=== PATIENT | female | born 1935 | race Caucasian/White ===

== ENCOUNTER 2020-09-30 08:11 | Emergency (ER) | payer MEDICARE, OTHER ==
[~2020-09-30] VITALS: Ht 160 cm; Wt 81.6 kg
[2020-09-30 08:28] VITALS: BP_SYST 150
[2020-09-30] MEDS ORDERED: NS 500 ML IV ONE (08:45)
[2020-09-30 09:13] LABS: BASOPHILS % (AUTO) 0.4 % (0.0-2.0); EOSINOPHILS # (AUTO) 0.2 K/uL (0.0-0.4); EOSINOPHILS % (AUTO) 1.5 % (0.0-4.0); HEMATOCRIT 41.2 % (36-48); HEMOGLOBIN 13.3 g/dL (12.0-16.0); LYMPHOCYTES # (AUTO) 5.6 K/uL (1.0-5.5); LYMPHOCYTES % (AUTO) 50.1 % (20.5-51.5); MEAN CORPUSCULAR HEMOGLOBIN 28 pg (27-31); MEAN CORPUSCULAR HGB CONC 32 % (32-36); MEAN CORPUSCULAR VOLUME 88 fL (79.0-98.0); MONOCYTES # (AUTO) 0.5 K/uL (0.0-1.0); MONOCYTES % (AUTO) 4.3 % (1.7-9.3); NEUTROPHILS # (AUTO) 4.9 K/uL (1.8-7.7); NEUTROPHILS % (AUTO) 43.7 % (40.0-70.0); PLATELET COUNT (AUTO) 252 K/uL (130-430); RED BLOOD CELL COUNT(AUTO) 4.67 MIL/uL (4.2-6.2); RED CELL DISTRIBUTION WIDTH 15.2 % (9.0-15.0); WHITE BLOOD COUNT (AUTO) 11.3 K/uL (4.8-10.8)
[2020-09-30 09:23] LABS: ANION GAP 7 (5-15); CALCIUM 8.9 mg/dL (8.4-11.0); CHLORIDE 104 mmol/L (98-107); CREATININE 1.04 mg/dL (0.55-1.30); GLUCOSE 117 mg/dL (70-99); POTASSIUM 4.3 mmol/L (3.5-5.1); SODIUM SERUM 143 mmol/L (136-145); UREA NITROGEN, BLOOD 15 mg/dL (8-21)
[2020-09-30 09:42] LABS: ALANINE AMINOTRANSFERASE 32 U/L (12-78); ALBUMIN 3.3 g/dL (3.4-4.8); ASPARTATE AMINOTRANSFERASE 27 U/L (10-37); TOTAL BILIRUBIN 0.4 mg/dL (0.0-1.0)
[2020-09-30 09:46] LABS: ACETAMINOPHEN < 1 ug/mL (1-30); ALCOHOL, BLOOD < 3 mg/dL (<10)
[2020-09-30] MEDS ORDERED: KETOROLAC TROMETHAMINE 30 MG VIAL IVP ONE (10:00)
== END 2020-09-30 10:15 | disposition short-term general hospital (02) ==
LOC: SED 08:11
DX: F29 Unspecified psychosis not due to a substance or known physiological condition (principal)
CPT/HCPCS: 36415; 80053; 85025; 99285; G0480; G0481; G0482

== ENCOUNTER 2022-09-10 10:07 | Inpatient (IN) | payer MEDICARE, OTHER ==
[~2022-09-10] VITALS: Ht 165.1 cm; Wt 79.4 kg
[2022-09-10 10:19] VITALS: BP_SYST 146
--- NOTE | 2022-09-10 10:20 | NUR ---
SON, LU, CALLED FOR STATUS. LEFT CALL BACK NUMBER [phone]
--- NOTE | 2022-09-10 10:25 | NUR ---
PATIENT BIBA FOR C/P PLACE IN BED 7 ON HOSPICE RN, AWAITING FOR EDP FOR INITIAL ASSESSMENT.
--- NOTE | 2022-09-10 10:26 | NUR ---
Patient to ER bed 7 to gown for evaluation. Side rails up. Report given to DOC MORFIN.
--- NOTE | 2022-09-10 10:27 | NUR ---
ER at bedside examining patient.
--- NOTE | 2022-09-10 10:43 | NUR ---
EDP SEEN PATIENT WITH ORDER [place] OUT.
[2022-09-10] MEDS ORDERED: ASPIRIN 81 MG TAB.CHEW PO ONE (10:45)
--- NOTE | 2022-09-10 11:17 | NUR ---
BELINDA SON OF PATIENT [id number]
[2022-09-10 11:23] LABS: HEMATOCRIT 45.2 % (36-48); HEMOGLOBIN 14.7 g/dL (12.0-16.0); MEAN CORPUSCULAR HEMOGLOBIN 29 pg (27-31); MEAN CORPUSCULAR HGB CONC 33 % (32-36); MEAN CORPUSCULAR VOLUME 89 fL (79.0-98.0); PLATELET COUNT (AUTO) 363 K/uL (130-430); RED BLOOD CELL COUNT(AUTO) 5.11 MIL/uL (4.2-6.2); RED CELL DISTRIBUTION WIDTH 14.3 % (9.0-15.0)
[2022-09-10 11:35] LABS: ANION GAP 12 (5-15); CALCIUM 10.2 mg/dL (8.4-11.0); CHLORIDE 98 mmol/L (98-107); CREATININE 2.15 mg/dL (0.55-1.30); GLUCOSE 124 mg/dL (70-99); UREA NITROGEN, BLOOD 90 mg/dL (8-21); WHITE BLOOD COUNT (AUTO) 22.3 K/uL (4.8-10.8)
[2022-09-10 11:43] LABS: ALANINE AMINOTRANSFERASE 43 U/L (12-78); ALBUMIN 3.9 g/dL (3.4-4.8); ASPARTATE AMINOTRANSFERASE 27 U/L (10-37); TOTAL BILIRUBIN 0.6 mg/dL (0.0-1.0)
[2022-09-10 12:36] LABS: BAND % (MANUAL) 0 % (0-6)
[2022-09-10 12:38] LABS: ATYPICAL LYMPHOCYTES % 7 % (0-0); BASOPHILS % (MANUAL) 0 % (0-2); EOSINOPHILS % (MANUAL) 1 % (0-7); MONOCYTES % (MANUAL) 3 % (0-11)
[2022-09-10 12:40] LABS: LYMPHOCYTES % (MANUAL) 55 % (20-46)
--- NOTE | 2022-09-10 13:51 | NUR ---
CALL PLACE TO [facility] FOR DISPOSITION.
--- NOTE | 2022-09-10 16:20 | NUR ---
covid swab obtained and sent to lab
[2022-09-10] MEDS ORDERED: cefTRIAXone 1 GM in D5W 50 ML IV ONE ×2 (18:45→19:00)
--- NOTE | 2022-09-10 18:57 | NUR ---
PATIENT STRAIGHT CATH TO COLLECT URINE.
[2022-09-10] MEDS ORDERED: cefTRIAXone 1 GM VIAL ONE (19:12)
[2022-09-10] MEDS: cefTRIAXone 1 GM in D5W 50 ML IV SCH (21:00)
--- NOTE | 2022-09-10 21:15 | NUR ---
PT VERBALIZE NEED TO HELP HER REPOSITION EVERY 2 HRS
[2022-09-10] MEDS ORDERED: PRO40 PO (21:44)
[2022-09-10] MEDS ORDERED: EZET10TA30 PO (21:44)
[2022-09-10] MEDS ORDERED: XALEYE OP (21:44)
[2022-09-10] MEDS ORDERED: CLON0.5T4 PO (21:44)
[2022-09-10] MEDS ORDERED: FURO-150 PO (21:44)
[2022-09-10] MEDS ORDERED: OMEG100037 PO (21:44)
[2022-09-10] MEDS ORDERED: METF-518 PO (21:44)
[2022-09-10] MEDS ORDERED: ASPI-1155 PO (21:44)
[2022-09-10] MEDS ORDERED: HYDR-3917 PO (21:44)
[2022-09-10] MEDS ORDERED: BRI.2% EACH EYE (21:44)
[2022-09-10] MEDS ORDERED: DOCU-144 PO (21:44)
[2022-09-10] MEDS ORDERED: MELA10TA PO (21:44)
[2022-09-10] MEDS ORDERED: POTA-197 PO (21:44)
[2022-09-10] MEDS ORDERED: SENN8.6T19 PO (21:44)
[2022-09-10] MEDS ORDERED: COLE1TAB2 PO (21:44)
[2022-09-10] MEDS ORDERED: BISA10SU61 RC (21:44)
[2022-09-10] MEDS ORDERED: HYDR-4038 PO (21:44)
[2022-09-10] MEDS ORDERED: MOM PO (21:44)
[2022-09-10] MEDS ORDERED: FLUT16SP16 NS (21:44)
[2022-09-10] MEDS ORDERED: SER25 PO (21:44)
[2022-09-10] MEDS ORDERED: FERROUS SULFATE PO (21:44)
[2022-09-10] MEDS ORDERED: NEU100 PO (21:44)
[2022-09-10] MEDS ORDERED: LACT10SO6 PO (21:44)
[2022-09-10] MEDS ORDERED: TRAM50TA2 PO (21:44)
[2022-09-10] MEDS ORDERED: L.RH1CAP PO (21:44)
[2022-09-11] MEDS: QUEtiapine FUMARATE 25 MG TABLET PO SCH
[2022-09-11 02:18] LABS: BILIRUBIN,URINE NEGATIVE (NEGATIVE); BLOOD, URINE NEGATIVE (NEGATIVE); CLARITY/URINE CLEAR (CLEAR); COLOR,URINE YELLOW (YELLOW); GLUCOSE,URINE NEGATIVE (NEGATIVE); KETONES,URINE NEGATIVE (NEGATIVE); LEUKOCYTE ESTERASE ,URINE 3+ (NEGATIVE); NITRITE, URINE POSITIVE (NEGATIVE); PH,URINE 8.5 (5.0-8.0); PROTEIN URINE TRACE (NEGATIVE); UROBILINOGEN,URINE 0.2 (0.2-1.0)
[2022-09-11] MEDS ORDERED: INSU100V7 SUBCUT (02:33)
[2022-09-11 02:35] LABS: RBC,URINE 0-3 /HPF (0-3)
[2022-09-11 02:36] LABS: MUCUS,URINE None Seen /LPF (None Seen); WBC,URINE 20-50 /HPF (0-3)
--- NOTE | 2022-09-11 03:00 | NUR ---
COMPLETED TOTAL BEDSIDE CARE WITH HOSPITAL BED CHANGE WELL TOLERATED
[2022-09-11] MEDS ORDERED: METF-379 PO (06:40)
[2022-09-11] MEDS ORDERED: INSULIN LISPRO SLIDING SCALE 100 UNITS/ML, 3 ML VIAL (humaLOG) SUBCUT PRN (07:30)
--- NOTE | 2022-09-11 08:00 | NUR ---
PT WITH BM, CLEANSED AND REPOSITIONED, LINEN CHANGED. REDNESS AND POOR SKIN INTEGRITY TO SACRAL REGION AFFIXED IODIFORM TO SCARAL REGION.
--- NOTE | 2022-09-11 08:04 | NUR ---
Admit bed requested Patient will be admitted to care of . Admitted to TELE unit. Diagnosis LEUKOCYTOSIS AND CHEST PAIN Inpatient (Yes or No) Y Observation (Yes or No) N Orientation concerns or request close to nursing station (Yes or No) N Covid Status NEGATIVE On vent or bipap Isolation requirements N Needs a sitter N From Home (Yes or if No enter name of facility) [facility] Requires Dialysis (Yes or No) N Med Rec Completed (Yes of No) Y
--- NOTE | 2022-09-11 08:26 | NUR ---
BREAKFAST OFFERED PT REFUSES FOOD AT THIS TIME REQUESTS LIGHTS OFF. PT IS AAOX3, DENIES SOB, DENIES CHEST PAIN. PT IS DROWSY AND LYING ON LEFT SIDE.
[2022-09-11] MEDS: FLUTICASONE PROPIONATE 50 mCg/SPRAY 16 GM NS SCH (09:00)
[2022-09-11] MEDS ORDERED: NACL 0.9% 1,000 ML IV ONE (09:30)
--- NOTE | 2022-09-11 10:00 | NUR ---
pt repositioned in bed, accucheck monitored sliding scale referred to.
[2022-09-11 11:07] LABS: BACTERIA,URINE MODERATE /HPF (None Seen)
[2022-09-11] MEDS: GABAPENTIN 100 MG CAPSULE PO SCH ×3 (11:57→21:00)
[2022-09-11] MEDS: DOCUSATE SODIUM 100 MG CAPSULE PO SCH ×2 (11:57→21:00)
[2022-09-11] MEDS: ASPIRIN 81 MG TAB.CHEW PO SCH (11:57)
[2022-09-11] MEDS: EZETIMIBE 10 MG TABLET PO SCH (11:58)
[2022-09-11] MEDS: PANTOPRAZOLE SODIUM 40 MG TAB PO SCH (11:58)
[2022-09-11] MEDS: NACL 0.9% 1,000 ML IV SCH ×3 (11:59→22:50)
[2022-09-11 12:37] LABS: ALANINE AMINOTRANSFERASE 53 U/L (12-78); ALBUMIN 3.9 g/dL (3.4-4.8); ANION GAP 16 (5-15); ASPARTATE AMINOTRANSFERASE 38 U/L (10-37); CALCIUM 9.9 mg/dL (8.4-11.0); CHLORIDE 98 mmol/L (98-107); CREATININE 1.96 mg/dL (0.55-1.30); GLUCOSE 129 mg/dL (70-99); TOTAL BILIRUBIN 0.4 mg/dL (0.0-1.0); UREA NITROGEN, BLOOD 89 mg/dL (8-21)
--- NOTE | 2022-09-11 13:46 | NUR ---
ACCUCHECK BLOOD SUGAR 124 NO INSULIN PER SLIDING SCALE
--- NOTE | 2022-09-11 14:11 | NUR ---
PT FAMILY BEDSIDE UPDATED ON STATUS OF ADMISSION PROCESS. OPPURTUNITY FOR QUESTIONS ANSWERED.
--- NOTE | 2022-09-11 14:41 | NUR ---
PT REPOSITIONED TO RIGHT SIDE LYING POSITION, PT ENCOURAGED TO SHIFT WEIGHT FOR BEST SKIN INTEGRITY.
--- NOTE | 2022-09-11 15:54 | NUR ---
ACCUCHECK 114 BLOOD SUGAR PT WITHIN PARAMETERS PER SLIDING SCALE.
--- NOTE | 2022-09-11 18:05 | NUR ---
Pt repositioned to lateral left side, pt diaper/brief cleansed and changed. Pt is warm and dry bed down rails up, denies complaints, pt vss , bolus ivf running free.
[2022-09-11] MEDS ORDERED: traMADol HCL HCL 50 MG TABLET (ULTRAM) ONE (18:30)
[2022-09-11] MEDS: traMADol HCL HCL 50 MG TABLET (ULTRAM) PO PRN (18:35)
--- NOTE | 2022-09-11 18:36 | NUR ---
Pt medicated for generalized pain per request. Ultram given pt tolerated well.
--- NOTE | 2022-09-11 18:57 | NUR ---
Pt offered soft mechanical low sodium diet . Pt refuses food at this time.
--- NOTE | 2022-09-11 19:30 | NUR ---
REPORT FROM JEREMIAH MORFIN
--- NOTE | 2022-09-11 20:00 | NUR ---
Patient resting quietly. No acute distress noted. Vital signs within normal range. REFUSING PUREWICK. REFUSING TO GIVE URINE SPECIMEN.
--- NOTE | 2022-09-11 20:00 | NUR ---
PT BG 134
--- NOTE | 2022-09-11 20:43 | NUR ---
PT AWARE OF PLAN FOR TRANSFER. BED NOT READY AT THIS TIME.
[2022-09-11] MEDS: BRIMONIDINE TARTRATE 0.2% 5 mL EYE DROPS EACH EYE SCH (21:00)
[2022-09-11] MEDS: LATANOPROST 2.5 ML DROPS (XALATAN) OP SCH (21:00)
[2022-09-12] VITALS (7 sets, daily range): BP systolic 119–149
--- NOTE | 2022-09-12 | NUR ---
Patient will be admitted to [facility]. Admitted to tele unit. Will go to room 105A. Belongings list completed. Complete and up to date summary report printed. SBAR report to be given at bedside with opportunity for questions. Report to Sravani MORFIN.
--- NOTE | 2022-09-12 03:03 | NUR ---
Received report and assumed care of this patient she is stable with normal vital signs, she denies any pain at this time. She was supposed to have NS running at 100 but the Peripheral I.V infiltrated and was taken out, patient refused it to be replaced verbalizing that she does not want any IV line to be inserted. Benefits of having an IV while admitted were explained to the patient with no success. To endorse to AM shift RN for continuity of care and also talk to her about having an IV inserted. Will continue to monitor her.
[2022-09-12] MEDS: NACL 0.9% 1,000 ML IV SCH ×3 (05:30→17:00)
--- NOTE | 2022-09-12 08:08 | NUR ---
refused- Pt refused blood draw and the heart monitor. Pt keeps taking the monitor out.
[2022-09-12] MEDS: FLUTICASONE PROPIONATE 50 mCg/SPRAY 16 GM NS SCH ×2 (09:00→21:00)
--- NOTE | 2022-09-12 09:00 | NUR ---
MD ROUNDS Seen by Dr. Mclean, Made aware that patient refused to wear monitor and keeps taking it out, also refused labs and no IV refused to start a new one.
[2022-09-12] MEDS: GABAPENTIN 100 MG CAPSULE PO SCH ×3 (09:34→22:16)
[2022-09-12] MEDS: DOCUSATE SODIUM 100 MG CAPSULE PO SCH ×2 (09:35→22:18)
[2022-09-12] MEDS: ASPIRIN 81 MG TAB.CHEW PO SCH (09:35)
[2022-09-12] MEDS: PANTOPRAZOLE SODIUM 40 MG TAB PO SCH (09:35)
[2022-09-12] MEDS: EZETIMIBE 10 MG TABLET PO SCH (09:35)
--- NOTE | 2022-09-12 10:38 | NUR ---
Diet- Pt stated she does not have a teeth and cannot chew food, change diet to pureed.
--- NOTE | 2022-09-12 12:21 | NUR ---
Notes- Endorse care to SHELBIE Greene. pt in bed, No distress.
--- NOTE | 2022-09-12 12:29 | NUR ---
Report received from day shift RN for continuity of care. Patient stable.
[2022-09-12] MEDS ORDERED: POTASSIUM CHLORIDE 20 MEQ TAB.PRT.SR PO ONE (15:00)
--- NOTE | 2022-09-12 16:36 | NUR ---
[facility] notified of patient's stability to transfer. [facility] will call if a bed is available. Patient's son notified of possible transfer to [facility] and he agreed to transfer.
--- NOTE | 2022-09-12 17:30 | NUR ---
Dietitian Recommendations * Continue liberalized puree diet until PO intake improves * Ordered: Glucerna BID (ONS provides 440kcals, 20g PRO) * Consider MVI for inadequate PO intake Please refer to nutrition assessment for details, thanks! CC, MPH, SAMY Addendum: 09/12/22 at [address] Glucerna BID not ordered: Puree diet includes Ensure Enlive TID (ONS provides 1050kcals, 60g PRO)
--- NOTE | 2022-09-12 18:46 | NUR ---
Patient report given to oncoming RN. Will continue to monitor.
[2022-09-12] MEDS ORDERED: clonazePAM 0.5 MG TABLET PO SCH (21:00)
[2022-09-12] MEDS: LATANOPROST 2.5 ML DROPS (XALATAN) OP SCH (21:00)
[2022-09-12] MEDS: BRIMONIDINE TARTRATE 0.2% 5 mL EYE DROPS EACH EYE SCH (21:00)
[2022-09-12] MEDS: hydrALAZINE HCL 25 MG TABLET PO SCH (22:17)
[2022-09-12] MEDS: traMADol HCL HCL 50 MG TABLET (ULTRAM) PO PRN (22:18)
[2022-09-12] MEDS: QUEtiapine FUMARATE 25 MG TABLET PO SCH (22:18)
[2022-09-12] MEDS: metFORMIN HCL 500 MG TABLET PO SCH (22:19)
[2022-09-12] MEDS ORDERED: cefTRIAXone 1 GM IVPB PREMIX 50 ML IV ONE (22:33)
[2022-09-12] MEDS: cefTRIAXone 1 GM in D5W 50 ML IV SCH (22:45)
[2022-09-13 00:20] VITALS: BP_SYST 126
[2022-09-13] MEDS: traMADol HCL HCL 50 MG TABLET (ULTRAM) PO PRN (00:24)
[2022-09-13 04:00] VITALS: BP_SYST 120
--- NOTE | 2022-09-13 05:54 | NUR ---
Patient did not have any complaints this shift, she received all her scheduled medications, she verbalized she wants to go home as she feels better . To endorse to AM shift for continuity of care.
[2022-09-13 08:53] LABS: BASOPHILS # (AUTO) 0.1 K/uL (0.0-0.2); BASOPHILS % (AUTO) 0.4 % (0.0-2.0); EOSINOPHILS # (AUTO) 0.3 K/uL (0.0-0.4); EOSINOPHILS % (AUTO) 1.9 % (0.0-4.0); HEMATOCRIT 44.7 % (36-48); HEMOGLOBIN 14.5 g/dL (12.0-16.0); LYMPHOCYTES # (AUTO) 11.1 K/uL (1.0-5.5); LYMPHOCYTES % (AUTO) 60.4 % (20.5-51.5); MEAN CORPUSCULAR HEMOGLOBIN 29 pg (27-31); MEAN CORPUSCULAR HGB CONC 33 % (32-36); MEAN CORPUSCULAR VOLUME 89 fL (79.0-98.0); MONOCYTES # (AUTO) 0.6 K/uL (0.0-1.0); MONOCYTES % (AUTO) 3.5 % (1.7-9.3); NEUTROPHILS # (AUTO) 6.2 K/uL (1.8-7.7); NEUTROPHILS % (AUTO) 33.8 % (40.0-70.0); PLATELET COUNT (AUTO) 293 K/uL (130-430); RED BLOOD CELL COUNT(AUTO) 5.02 MIL/uL (4.2-6.2); RED CELL DISTRIBUTION WIDTH 14.3 % (9.0-15.0); WHITE BLOOD COUNT (AUTO) 18.4 K/uL (4.8-10.8)
[2022-09-13] MEDS: DOCUSATE SODIUM 100 MG CAPSULE PO SCH (09:00)
[2022-09-13] MEDS: FLUTICASONE PROPIONATE 50 mCg/SPRAY 16 GM NS SCH (09:00)
[2022-09-13 09:21] LABS: ALANINE AMINOTRANSFERASE 43 U/L (12-78); ALBUMIN 3.7 g/dL (3.4-4.8); ANION GAP 11 (5-15); ASPARTATE AMINOTRANSFERASE 26 U/L (10-37); CALCIUM 9.3 mg/dL (8.4-11.0); CHLORIDE 102 mmol/L (98-107); CHOLESTEROL 221 mg/dL (<200); CREATININE 1.33 mg/dL (0.55-1.30); GLUCOSE 207 mg/dL (70-99); HDL CHOLESTEROL 53 mg/dL (>55); LDL CHOLESTEROL 136 mg/dL (<100); THYROID STIMULATING HORMONE 1.73 uIu/mL (0.34-4.82); TOTAL BILIRUBIN 0.4 mg/dL (0.0-1.0); TRIGLYCERIDES 172 mg/dL (30-150); UREA NITROGEN, BLOOD 57 mg/dL (8-21)
[2022-09-13] MEDS: ASPIRIN 81 MG TAB.CHEW PO SCH (10:34)
[2022-09-13] MEDS: NACL 0.9% 1,000 ML IV SCH (10:34)
[2022-09-13] MEDS: GABAPENTIN 100 MG CAPSULE PO SCH ×2 (10:35→15:56)
[2022-09-13] MEDS: EZETIMIBE 10 MG TABLET PO SCH (10:35)
[2022-09-13] MEDS: metFORMIN HCL 500 MG TABLET PO SCH (10:35)
[2022-09-13] MEDS: hydrALAZINE HCL 25 MG TABLET PO SCH ×2 (10:37→14:58)
[2022-09-13] MEDS: PANTOPRAZOLE SODIUM 40 MG TAB PO SCH (10:37)
[2022-09-13 11:26] VITALS: BP_SYST 91
[2022-09-13 15:30] VITALS: BP_SYST 100
[2022-09-13] MEDS ORDERED: POTASSIUM CHLORIDE 20 MEQ TAB.PRT.SR PO ONE (18:00)
--- NOTE | 2022-09-13 19:11 | NUR ---
A/Ox2,confused and forgetful at times,vss,resting in bed,no IV access,d/t hard stick and attempt made by several set staff fitter but unsuccessful.K level 3.0, came made round and notified of pt condition,order received to give KCL 40 meq po once and midline placement,pt has bed available in [facility],room 4030 pt and her son fatoumata both notified and agreed of transfer.
[2022-09-13 20:31] VITALS: BP_SYST 130
--- NOTE | 2022-09-13 21:33 | NUR ---
NOTES PATIENT TRANSFERED TO [facility] IN [place] ORDERED WITH STABLE VITAL SIGNS. BELONGINGS CHECKED, ALL NEEDS ATTENDED TO. PATIENT'S SON BOB MADE AWARE VIA TELEPHONE. REPORT GIVEN TO SHELBIE MACHUCA.
== END 2022-09-13 21:33 | disposition short-term general hospital (02) | DRG 871 ==
LOC: SED 10:07 → STU 18:49
PROVIDERS: ADMIT Internal Medicine; ATTEND Internal Medicine
DX: A41.9 Sepsis, unspecified organism (principal); G93.41 Metabolic encephalopathy; C91.10 Chronic lymphocytic leukemia of B-cell type not having achieved remission; N39.0 Urinary tract infection, site not specified; N17.9 Acute kidney failure, unspecified; I24.9 Acute ischemic heart disease, unspecified; F41.9 Anxiety disorder, unspecified; F32.A Depression, unspecified; E78.5 Hyperlipidemia, unspecified; F29 Unspecified psychosis not due to a substance or known physiological condition; E86.0 Dehydration; I12.9 Hypertensive chronic kidney disease with stage 1 through stage 4 chronic kidney disease, or unspecified chronic kidney disease; E11.22 Type 2 diabetes mellitus with diabetic chronic kidney disease; N18.9 Chronic kidney disease, unspecified; G89.29 Other chronic pain; Z20.822 Contact with and (suspected) exposure to COVID-19; Z90.49 Acquired absence of other specified parts of digestive tract; Z74.01 Bed confinement status; Z90.710 Acquired absence of both cervix and uterus; Z79.82 Long term (current) use of aspirin; Z79.899 Other long term (current) drug therapy; Z88.8 Allergy status to other drugs, medicaments and biological substances; Z91.041 Radiographic dye allergy status
CPT/HCPCS: 36415; 71045; 80053; 80061; 81000; 82962; 83036; 83605; 83880; 84443; 84484; 85007; 85025; 85027; 87040; 87081; 87086; 93005; 93306; 96365; 96366; 99291; G0378; J0696; J7030

== ENCOUNTER 2024-01-18 22:37 | Inpatient (IN) | payer OTHER ==
[~2024-01-18] VITALS: Ht 162.6 cm; Wt 77.4 kg
[~2024-01-18 22:37] MED LIST: ACET-2634 PO; ACET325T PO; ASPI-1155 PO; BISA10SU61 RC; CLON0.5T4 PO; CLOT45CR33 TP; COLE1TAB2 PO; DICL100G60 TP; DOCU-144 PO; EZET10TA30 PO; FERR-69 PO; FLUT16SP16 NS; FURO-150 PO; HYDR-3927 PO; HYDR25TA86 PO; LACT10SO7 PO; LIDO700A30 TP; MELA10TA2 PO; MOM PO; MORP-92 PO; MULT-1193 PO; NEU300 PO; NITR0.4T47 SL; OMEG-158 PO; ONDA-8 TL; PEG15DRO12 EACH EYE; POTA8TAB66 PO; PRO40 PO; SACC250C8 PO; SENN8.6T19 PO; TRIA15CR4 TP; XALEYE OP
[2024-01-18 22:50] VITALS: BP_SYST 194; PULSE 78; RESP 22; TEMP 98; O2SAT 94
[2024-01-18 23:34] LABS: BILIRUBIN,URINE NEGATIVE (NEGATIVE); BLOOD, URINE NEGATIVE (NEGATIVE); CLARITY/URINE CLEAR (CLEAR); COLOR,URINE YELLOW (YELLOW); GLUCOSE,URINE NEGATIVE (NEGATIVE); KETONES,URINE NEGATIVE (NEGATIVE); LEUKOCYTE ESTERASE ,URINE NEGATIVE (NEGATIVE); NITRITE, URINE NEGATIVE (NEGATIVE); PH,URINE 7.5 (5.0-8.0); PROTEIN URINE 1+ (NEGATIVE); UROBILINOGEN,URINE 0.2 (0.2-1.0)
[2024-01-19 00:10] LABS: BACTERIA,URINE None Seen /HPF (None Seen)
[2024-01-19 00:38] LABS: ANION GAP 6 (5-15); CALCIUM 9.4 mg/dL (8.4-11.0); CARBON DIOXIDE 32 mmol/L (23-29); CHLORIDE 102 mmol/L (98-107); CREATININE 1.01 mg/dL (0.55-1.30); GLUCOSE 114 mg/dL (74-106); POTASSIUM 4.4 mmol/L (3.5-5.1); SODIUM SERUM 140 mmol/L (136-145); UREA NITROGEN, BLOOD 19 mg/dL (8-21)
[2024-01-19 00:40] LABS: PROTHROMBIN TIME 9.9 SECS (9.5-12.5)
[2024-01-19] MEDS: ONDANSETRON HCL 4 MG/2 ML VIAL IVP ONE ×2 (00:49→03:21)
[2024-01-19 00:50] LABS: ALANINE AMINOTRANSFERASE 47 U/L (12-78); ALBUMIN 3.5 g/dL (3.4-4.8); ASPARTATE AMINOTRANSFERASE 36 U/L (10-37); BILIRUBIN,DIRECT 0.1 mg/dL (0.0-0.3); TOTAL BILIRUBIN 0.3 mg/dL (0.0-1.0); TOTAL PROTEIN, SERUM 7.7 g/dL (6.4-8.3)
[2024-01-19] MEDS: MORPHINE 4 MG INJ. 4 MG/ML VIAL IVP ONE (00:54)
[2024-01-19] MEDS: NACL 0.9% 1,000 ML IV ONE (00:59)
[2024-01-19 01:00] LABS: BASOPHILS % (AUTO) 0.3 % (0.0-2.0); EOSINOPHILS # (AUTO) 0.2 K/uL (0.0-0.4); EOSINOPHILS % (AUTO) 1.3 % (0.0-4.0); HEMATOCRIT 40.5 % (36-48); HEMOGLOBIN 13.2 g/dL (12.0-16.0); LYMPHOCYTES # (AUTO) 6.9 K/uL (1.0-5.5); LYMPHOCYTES % (AUTO) 56.4 % (20.5-51.5); MEAN CORPUSCULAR HEMOGLOBIN 28 pg (27-31); MEAN CORPUSCULAR HGB CONC 33 % (32-36); MEAN CORPUSCULAR VOLUME 87 fL (79.0-98.0); MONOCYTES # (AUTO) 0.4 K/uL (0.0-1.0); MONOCYTES % (AUTO) 2.9 % (1.7-9.3); NEUTROPHILS # (AUTO) 4.8 K/uL (1.8-7.7); NEUTROPHILS % (AUTO) 39.1 % (40.0-70.0); PLATELET COUNT (AUTO) 190 K/uL (130-430); RED BLOOD CELL COUNT(AUTO) 4.69 MIL/uL (4.2-6.2); RED CELL DISTRIBUTION WIDTH 16.1 % (9.0-15.0); WHITE BLOOD COUNT (AUTO) 12.3 K/uL (4.8-10.8)
[2024-01-19] MEDS: LORazepam 1 MG TABLET PO ONE (02:16)
[2024-01-19] MEDS ORDERED: ONDA-8 TL (03:20)
[2024-01-19] MEDS ORDERED: DRON400T PO (04:16)
[2024-01-19] MEDS ORDERED: POLY17PO4 PO (04:16)
[2024-01-19] MEDS: DOCUSATE SODIUM 100 MG CAPSULE PO ONE ×2 (05:21→15:52)
[2024-01-19] MEDS: LACTULOSE 20 GM/30 ML UDC PO ONE (05:22)
[2024-01-19] MEDS ORDERED: ONDANSETRON 4 MG ODT TAB ONE ×2 (07:16→16:17)
[2024-01-19] MEDS: ONDANSETRON 4 MG ODT TAB PO ONE (07:35)
[2024-01-19] MEDS: cloNIDine HCL 0.1 MG TABLET PO ONE (07:35)
[2024-01-19] MEDS: hydrALAZINE HCL 20 MG/ML VIAL IVP ONE ×2 (08:06→13:21)
[2024-01-19] MEDS: ACETAMINOPHEN 325 MG TABLET PO ONE (11:46)
[2024-01-19] MEDS: HYDROcodone/ACETAMIN 5-325 MG TAB (NORCO/ VICODIN) PO ONE (13:46)
[2024-01-19] MEDS: MORPHINE 2 MG/ML INJ. SYRINGE IVP ONE (14:20)
[2024-01-19] MEDS ORDERED: NALOXONE HCL 0.4 MG/ML AMP (NARCAN) IVP PRN ×2 (15:15)
[2024-01-19] MEDS ORDERED: LIDOCAINE PATCH 5% 1 EA TP PRN (15:15)
[2024-01-19] MEDS ORDERED: HYDROcodone/ACETAMIN 10-325 MG TAB PO PRN (15:15)
[2024-01-19] MEDS ORDERED: BISACODYL 10 MG/SUPPOSITORY RC PRN (15:15)
[2024-01-19] MEDS ORDERED: NITROGLYCERIN 0.4 MG TAB.SUBL SL PRN (15:15)
[2024-01-19] MEDS ORDERED: cloNIDine HCL 0.1 MG TABLET PO PRN (15:15)
[2024-01-19] MEDS ORDERED: COLESTIPOL HCL 1 GM PO SCH (15:15)
[2024-01-19] MEDS ORDERED: NON-FORMULARY MEDICATION (Melatonin 10 MG) PO PRN (15:15)
[2024-01-19] MEDS ORDERED: MILK OF MAGNESIA 30 ML UDC PO PRN (15:15)
[2024-01-19] MEDS ORDERED: CLOTRIMAZOLE TP SCH (15:15)
[2024-01-19] MEDS ORDERED: NON-FORMULARY MEDICATION (Lactulose 20 GM) PO PRN (15:15)
[2024-01-19] MEDS ORDERED: NON-FORMULARY MEDICATION (Diclofenac Sodium 1 APPLIC) TP PRN (15:15)
[2024-01-19] MEDS ORDERED: FLUTICASONE PROPIONATE 50 mCg/SPRAY 16 GM NS PRN (15:15)
[2024-01-19] MEDS ORDERED: LACTULOSE 20 GM/30 ML UDC PO PRN (15:45)
[2024-01-19] MEDS: ASPIRIN 81 MG TAB.CHEW PO ONE (15:52)
[2024-01-19] MEDS ORDERED: MELATONIN 5 MG TABLET PO PRN (16:00)
[2024-01-19] MEDS ORDERED: ONDANSETRON HCL 4 MG/2 ML VIAL IVP PRN (16:15)
[2024-01-19] MEDS: POTASSIUM CHLORIDE 8 MEQ TABLET.ER PO ONE (16:38)
[2024-01-19] MEDS: FUROSEMIDE 20 MG TABLET PO ONE (16:58)
[2024-01-19] MEDS: EZETIMIBE 10 MG TABLET PO ONE (16:59)
[2024-01-19] MEDS: PANTOPRAZOLE SODIUM 40 MG TAB PO ONE (16:59)
[2024-01-19] MEDS ORDERED: DICLOFENAC SODIUM TP PRN (17:00)
[2024-01-19] MEDS: DRONEDARONE HYDROCHLORIDE 400 MG TABLET PO ONE (17:00)
[2024-01-19] MEDS: GABAPENTIN 300 MG CAPSULE PO ONE (17:03)
[2024-01-19] MEDS: POLYETHYLENE GLYCOL 3350, 17 GM/ POWD.PACK PO ONE (17:04)
[2024-01-19] MEDS: MORPHINE SULFATE 15 MG TABLET.ER PO SCH (17:04)
[2024-01-19] MEDS ORDERED: GABAPENTIN 300 MG CAPSULE ONE (17:04)
[2024-01-19] MEDS: MORPHINE SULFATE 15 MG TABLET.ER ONE (17:06)
[2024-01-19] MEDS: MORPHINE SULFATE 15 MG TABLET.ER PO ONE (17:06)
[2024-01-19] MEDS: FERROUS SULFATE 325 MG TABLET.DR PO SCH (17:11)
[2024-01-19] MEDS ORDERED: FISH OIL PO SCH (18:00)
[2024-01-19] MEDS ORDERED: NON-FORMULARY MEDICATION (Ferrous Sulfate 325 MG) PO SCH (18:00)
[2024-01-19] MEDS ORDERED: DHA PO SCH (18:00)
[2024-01-19] MEDS ORDERED: EPA PO SCH (18:00)
[2024-01-19] MEDS ORDERED: [UNRECOGNIZED DRUG - OTHER] PO SCH (18:00)
[2024-01-19] MEDS ORDERED: OMEGA PO SCH (18:00)
[2024-01-19] MEDS: DOCUSATE SODIUM 100 MG CAPSULE PO SCH (21:00)
[2024-01-19] MEDS: LATANOPROST 2.5 ML DROPS (XALATAN) OP SCH (21:00)
[2024-01-19] MEDS: SENNOSIDES 8.6 MG TABLET PO SCH (21:00)
[2024-01-19] MEDS: CLOTRIMAZOLE 1% TOPICAL CREAM 15 GM TP SCH (21:00)
[2024-01-19] MEDS: COLESTIPOL HCL 1 GM PO SCH (21:00)
[2024-01-19] MEDS ORDERED: NON-FORMULARY MEDICATION (Triamcinolone Acetonide 1 APPLIC) TP SCH (21:00)
[2024-01-19] MEDS: TRIAMCINOLONE ACETONIDE 0.1% 15 GM CREAM.GM. TP SCH (21:00)
[2024-01-19] MEDS: hydrALAZINE HCL 25 MG TABLET PO SCH (21:00)
[2024-01-19] MEDS: MORPHINE 2 MG/ML INJ. SYRINGE IVP PRN (21:22)
[2024-01-19] MEDS: clonazePAM 0.5 MG TABLET PO SCH (21:28)
[2024-01-19] MEDS ORDERED: hydrALAZINE HCL 20 MG/ML VIAL ONE (21:41)
[2024-01-19] MEDS: ACETAMINOPHEN 500 MG TABLET PO PRN (21:47)
[2024-01-19] MEDS: GABAPENTIN 300 MG CAPSULE PO SCH (22:00)
[2024-01-20] MEDS ORDERED: MORPHINE 2 MG/ML INJ. SYRINGE ONE (03:34)
[2024-01-20] MEDS: ONDANSETRON HCL 4 MG/2 ML VIAL IVP PRN (03:40)
[2024-01-20 07:56] LABS: BASOPHILS % (AUTO) 0.3 % (0.0-2.0); EOSINOPHILS # (AUTO) 0.2 K/uL (0.0-0.4); EOSINOPHILS % (AUTO) 1.3 % (0.0-4.0); HEMATOCRIT 39.9 % (36-48); LYMPHOCYTES # (AUTO) 9.2 K/uL (1.0-5.5); LYMPHOCYTES % (AUTO) 67.6 % (20.5-51.5); MEAN CORPUSCULAR HEMOGLOBIN 29 pg (27-31); MEAN CORPUSCULAR HGB CONC 33 % (32-36); MEAN CORPUSCULAR VOLUME 87 fL (79.0-98.0); MONOCYTES # (AUTO) 0.5 K/uL (0.0-1.0); NEUTROPHILS # (AUTO) 3.7 K/uL (1.8-7.7); PLATELET COUNT (AUTO) 210 K/uL (130-430); RED BLOOD CELL COUNT(AUTO) 4.57 MIL/uL (4.2-6.2); RED CELL DISTRIBUTION WIDTH 16.6 % (9.0-15.0); WHITE BLOOD COUNT (AUTO) 13.6 K/uL (4.8-10.8)
[2024-01-20 08:34] LABS: ALANINE AMINOTRANSFERASE 49 U/L (12-78); ALBUMIN 3.3 g/dL (3.4-4.8); ANION GAP 5 (5-15); ASPARTATE AMINOTRANSFERASE 33 U/L (10-37); CALCIUM 9.5 mg/dL (8.4-11.0); CARBON DIOXIDE 31 mmol/L (23-29); CHLORIDE 102 mmol/L (98-107); CREATININE 1.03 mg/dL (0.55-1.30); GLUCOSE 108 mg/dL (74-106); POTASSIUM 4.2 mmol/L (3.5-5.1); SODIUM SERUM 138 mmol/L (136-145); TOTAL BILIRUBIN 0.5 mg/dL (0.0-1.0); TOTAL PROTEIN, SERUM 6.9 g/dL (6.4-8.3); UREA NITROGEN, BLOOD 16 mg/dL (8-21)
[2024-01-20 08:52] VITALS: BP_SYST 143; PULSE 87; RESP 18; TEMP 98.6; O2SAT 98
[2024-01-20] MEDS ORDERED: MULTIVITAMIN WITH MINERALS PO SCH (09:00)
[2024-01-20] MEDS: ASPIRIN 81 MG TAB.CHEW PO SCH (10:05)
[2024-01-20] MEDS: MULTIVITS,CA,MINERALS/IRON/FA 1 TABLET PO SCH (10:07)
[2024-01-20] MEDS: FUROSEMIDE 20 MG TABLET PO SCH (10:07)
[2024-01-20] MEDS: PANTOPRAZOLE SODIUM 40 MG TAB PO SCH (10:08)
[2024-01-20] MEDS: POTASSIUM CHLORIDE 8 MEQ TABLET.ER PO SCH (10:08)
[2024-01-20] MEDS: EZETIMIBE 10 MG TABLET PO SCH (10:08)
[2024-01-20] MEDS: POLYETHYLENE GLYCOL 3350, 17 GM/ POWD.PACK PO SCH (10:09)
[2024-01-20] MEDS: OMEGA-3/DHA/EPA/FISH OIL 1 GM CAPSULE PO SCH (10:09)
[2024-01-20] MEDS: PEG 400/HYPROMELLOSE/GLYCERIN 15 ML DROPS EACH EYE SCH (10:09)
[2024-01-20 10:10] LABS: NEUTROPHILS % (AUTO) 26.8 % (40.0-70.0)
[2024-01-20] MEDS: clonazePAM 0.5 MG TABLET PO ONE (11:21)
[2024-01-20] MEDS: DRONEDARONE HYDROCHLORIDE 400 MG TABLET PO SCH (11:22)
[2024-01-20 12:15] VITALS: BP_SYST 136; PULSE 65; RESP 16; TEMP 97.1; O2SAT 96
[2024-01-20 16:00] VITALS: BP_SYST 113; PULSE 70; RESP 16; TEMP 97; O2SAT 96
[2024-01-20 19:00] VITALS: BP_SYST 115; PULSE 74; RESP 16; TEMP 97.2; O2SAT 96
[2024-01-20 20:00] VITALS: BP_SYST 115; PULSE 74; RESP 16; TEMP 97.2; O2SAT 96
[2024-01-20] MEDS: clonazePAM 0.5 MG TABLET PO SCH (22:05)
[2024-01-21] VITALS: BP_SYST 112; PULSE 72; RESP 16; TEMP 97.4; O2SAT 96
[2024-01-21 08:00] VITALS: BP_SYST 161; PULSE 68; RESP 18; TEMP 97; O2SAT 98
[2024-01-21 08:28] VITALS: O2SAT 98
[2024-01-21] MEDS: POLYETHYLENE GLYCOL 3350, 17 GM/ POWD.PACK PO SCH (09:28)
[2024-01-21 11:05] VITALS: BP_SYST 130; PULSE 67; RESP 15; TEMP 97.8; O2SAT 98
[2024-01-21 12:00] VITALS: O2SAT 97
[2024-01-21 16:45] VITALS: BP_SYST 130; PULSE 71; RESP 18; TEMP 97.8; O2SAT 97
== END 2024-01-21 15:50 | DRG 305 ==
LOC: SED 22:37 → STU 01-19 14:35
PROVIDERS: ADMIT Internal Medicine; ATTEND Internal Medicine
DX: I16.0 Hypertensive urgency (principal); R65.10 Systemic inflammatory response syndrome (SIRS) of non-infectious origin without acute organ dysfunction; R10.9 Unspecified abdominal pain; I13.0 Hypertensive heart and chronic kidney disease with heart failure and stage 1 through stage 4 chronic kidney disease, or unspecified chronic kidney disease; Z68.29 Body mass index [BMI] 29.0-29.9, adult; K59.09 Other constipation; F41.9 Anxiety disorder, unspecified; E78.5 Hyperlipidemia, unspecified; F32.A Depression, unspecified; G62.9 Polyneuropathy, unspecified; G89.4 Chronic pain syndrome; I50.9 Heart failure, unspecified; N18.9 Chronic kidney disease, unspecified; E11.22 Type 2 diabetes mellitus with diabetic chronic kidney disease; K21.9 Gastro-esophageal reflux disease without esophagitis; E66.9 Obesity, unspecified; Z74.01 Bed confinement status; Z79.82 Long term (current) use of aspirin; Z79.899 Other long term (current) drug therapy; Z85.42 Personal history of malignant neoplasm of other parts of uterus; Z87.01 Personal history of pneumonia (recurrent); Z90.49 Acquired absence of other specified parts of digestive tract; Z90.710 Acquired absence of both cervix and uterus; Z88.8 Allergy status to other drugs, medicaments and biological substances; Z79.2 Long term (current) use of antibiotics
CPT/HCPCS: 36415; 71045; 80048; 80053; 80076; 81000; 81001; 81015; 82948; 83605; 84484; 85025; 85610; 85730; 87040; 87081; 87086; 93005; 97110-GP; 97530-GP; 99285; G0378; J0360; J2270; J2405; Q0162